=== PATIENT | male | born 1995 | race Caucasian/White ===

== ENCOUNTER 2021-07-03 16:04 | Emergency (ER) | payer BC ==
[~2021-07-03] VITALS: Ht 180.3 cm; Wt 70.3 kg
[2021-07-03 16:04] VITALS: BP_SYST 106
[2021-07-03] MEDS ORDERED: EPINEPHrine 1 MG/ML AMP ONE (16:12)
[2021-07-03] MEDS ORDERED: predniSONE 20 MG TABLET ONE (16:14)
[2021-07-03] MEDS ORDERED: predniSONE 20 MG TABLET PO ONE (16:15)
[2021-07-03] MEDS ORDERED: EPINEPHrine 1 MG/ML VIAL IM ONE ×2 (16:15→16:45)
[2021-07-03] MEDS ORDERED: DIPH25CA83 PO (19:30)
[2021-07-03] MEDS ORDERED: PRED20TA PO (19:30)
[2021-07-03] MEDS ORDERED: EPIN0.3P3 IM (19:30)
[2021-07-03 19:48] VITALS: BP_SYST 107
== END 2021-07-03 19:48 | disposition home or self-care (01) ==
LOC: SED 16:04
DX: T78.01XA Anaphylactic reaction due to peanuts, initial encounter (principal); Z79.899 Other long term (current) drug therapy
CPT/HCPCS: 96372; 99291; J0171; J7512